=== PATIENT | female | born 1985 ===

== ENCOUNTER 2017-09-03 08:09 | Day surgery (SDC) | payer OTHER ==
[~2017-09-03] VITALS: Ht 149.9 cm; Wt 63.5 kg
[2017-09-03] MEDS ORDERED: fentaNYL 0.05 MG/ML VIAL ONE (09:07)
[2017-09-03] MEDS ORDERED: MIDAZOLAM 2 MG/2 ML VIAL ONE (09:08)
[2017-09-03] MEDS ORDERED: LIDOCAINE VISCOUS 2% 20 ML UDC ONE (09:08)
== END 2017-09-03 10:10 | disposition home or self-care (01) ==
LOC: MDS 08:09 → MMU 08:10 → MDS 10:10
PROVIDERS: ATTEND Internal Medicine Gastroenterology
DX: K22.70 Barrett's esophagus without dysplasia (principal); K21.9 Gastro-esophageal reflux disease without esophagitis; E66.3 Overweight; Z79.899 Other long term (current) drug therapy; Z68.28 Body mass index [BMI] 28.0-28.9, adult
CPT/HCPCS: 43239; 88305; 88313; J2250; J7030; J7120; J3010